=== PATIENT | male | born 1980 | race Caucasian/White ===

== ENCOUNTER 2016-12-03 00:53 | Emergency (ER) | payer SELFPAY ==
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
[2016-12-03] MEDS ORDERED: XYLOCAINE 1% HCL 20 ML MDV ONE (01:42)
[2016-12-03] MEDS ORDERED: ULTRAM 50 MG PO ONE ×2 (01:43→02:03)
[2016-12-03] MEDS ORDERED: ULTRAM 50 MG ONE ×2 (01:44→02:11)
[2016-12-03 02:26] VITALS: BP 158/108; PULSE 90; O2SAT 97
[2016-12-03] MEDS ORDERED: XYLOCAINE 1% HCL 20 ML MDV IJ ONE (02:40)
== END 2016-12-03 02:30 | disposition home or self-care (01) ==
LOC: ED 00:53
PROC: 0HQ1XZZ Repair Face Skin, External Approach (ICD-10-PCS; principal; 2016-12-03)
DX: S01.111A Laceration without foreign body of right eyelid and periocular area, initial encounter (principal); S31.119A Laceration without foreign body of abdominal wall, unspecified quadrant without penetration into peritoneal cavity, initial encounter; S00.93XA Contusion of unspecified part of head, initial encounter; X99.1XXA Assault by knife, initial encounter
CPT/HCPCS: 96372; 99283